=== PATIENT | male | born 1960 | race Caucasian/White ===

== ENCOUNTER 2022-08-03 10:48 | Emergency (ER) | payer BC | END 2022-08-03 11:57 | disposition home or self-care (01) | LOC: JP.ED 10:48 | DX: N39.0 Urinary tract infection, site not specified (principal); E78.00 Pure hypercholesterolemia, unspecified; I10 Essential (primary) hypertension; Z79.899 Other long term (current) drug therapy | CPT/HCPCS: 81001; 87086; 87088; 87186; 99284 ==